=== PATIENT | female | born 1960 | race Caucasian/White ===

== ENCOUNTER 2020-10-14 15:15 | Emergency (ER) | payer BC ==
[2020-10-14 15:40] VITALS: TEMP 97.5; BMI 36.6
[2020-10-14 17:57] LABS: BASO % 0.1 % (0-2.0); EOS % 0.4 % (0-4.5); HEMATOCRIT 40.8 % (32.4-45.2); HEMOGLOBIN 14.2 GM/dL (10.7-15.3); LYMPH % 24.8 % (8-40); MCH 31.7 pg (25.7-33.7); MCHC 34.9 g/dl (32.0-36.0); MEAN CELL VOLUME 90.7 fl (80-96); MEAN PLT VOLUME 7.9 fl (7.5-11.1); MONO % 4.5 % (3.8-10.2); NEUT % 70.2 % (42.8-82.8); PLATELET COUNT 155 10^3/uL (134-434); RDW 12.6 % (11.6-15.6); WHITE BLOOD COUNT 8.2 K/mm3 (4.0-10.0)
[2020-10-14 18:12] LABS: CHLORIDE 108 mmol/L (98-107); SODIUM 142 mmol/L (136-145)
[2020-10-14 18:15] LABS: ALBUMIN 4.1 g/dl (3.4-5.0); ANION GAP 6 MMOL/L (8-16); BLOOD UREA NITROGEN 23.3 mg/dL (7-18); CO2 27 mmol/L (21-32); GLUCOSE,RANDOM 113 mg/dL (74-106)
[2020-10-14 18:18] LABS: CREATININE 0.6 mg/dL (0.55-1.3); SGOT/AST 17 U/L (15-37); SGPT/ALT 36 U/L (13-61)
[2020-10-14 18:20] LABS: BILIRUBIN,TOTAL 0.8 mg/dL (0.2-1); TOT PROT 6.9 g/dl (6.4-8.2)
[2020-10-14 18:21] LABS: ALK PHOS 91 U/L (45-117)
[2020-10-14 18:26] VITALS: BP 120/63; PULSE 69
== END 2020-10-14 19:33 | disposition home or self-care (01) ==
LOC: JER 15:15
DX: R55 Syncope and collapse (principal)
CPT/HCPCS: 36415; 71045-TC-FY; 80053; 82550; 84484; 85025; 93005; 93010; 99285-25

== ENCOUNTER 2023-10-12 12:42 | Emergency (ER) | payer BC ==
[2023-10-12 12:48] VITALS: BP 131/72; PULSE 98; RESP 18; TEMP 99.5; BMI 38.7
[2023-10-12 13:50] LABS: BASO % 0.4 % (0-2.0); HEMATOCRIT 38.5 % (32.4-45.2); HEMOGLOBIN 13.3 GM/dL (10.7-15.3); LYMPH % 13.4 % (8-40); MCH 31.8 pg (25.7-33.7); MCHC 34.6 g/dl (32.0-36.0); MEAN CELL VOLUME 91.8 fl (80-96); MEAN PLT VOLUME 8.3 fl (7.5-11.1); MONO % 7.8 % (3.8-10.2); NEUT % 78.4 % (42.8-82.8); PLATELET COUNT 167 10^3/uL (134-434); RBC 4.19 M/mm3 (3.60-5.2); RDW 13.1 % (11.6-15.6); WHITE BLOOD COUNT 11.2 K/mm3 (4.0-10.0)
[2023-10-12] MEDS ORDERED: KETOROLAC TROMETHAMINE 30 MG/1 ML VIAL ONE (13:55)
[2023-10-12] MEDS: SODIUM CHLORIDE 0.9% 500 ML INFUS.BAG IV ONE (14:01)
[2023-10-12] MEDS: KETOROLAC TROMETHAMINE 30 MG/1 ML VIAL IM ONE (14:02)
[2023-10-12 14:10] LABS: SODIUM 135 mmol/L (136-145)
[2023-10-12 14:11] LABS: ALBUMIN 3.7 g/dl (3.4-5.0); BLOOD UREA NITROGEN 16.5 mg/dL (7-18); CO2 27 mmol/L (21-32); GLUCOSE,RANDOM 133 mg/dL (74-106)
[2023-10-12 14:15] LABS: SGOT/AST 72 U/L (15-37); SGPT/ALT 34 U/L (13-61)
[2023-10-12 14:17] LABS: TOT PROT 6.8 g/dl (6.4-8.2)
[2023-10-12 14:18] LABS: ALK PHOS 95 U/L (45-117); BILIRUBIN,TOTAL 2.1 mg/dL (0.2-1)
[2023-10-12 14:27] LABS: ANION GAP 5 mmol/L (4-13); CHLORIDE 104 mmol/L (98-107); POTASSIUM 7.8 mmol/L (3.5-5.1)
[2023-10-12 15:39] LABS: POTASSIUM 4.1 mmol/L (3.5-5.1)
[2023-10-12 15:42] LABS: CALCIUM 8.7 mg/dL (8.5-10.1)
[2023-10-12 15:43] LABS: ALBUMIN 3.6 g/dl (3.4-5.0); BLOOD UREA NITROGEN 18.5 mg/dL (7-18)
[2023-10-12 15:46] LABS: CREATININE 0.9 mg/dL (0.55-1.3)
[2023-10-12 15:47] LABS: BILIRUBIN,TOTAL 1.6 mg/dL (0.2-1)
[2023-10-12 16:33] LABS: EPI CELLS 5 /uL (0-25.1); HYALINE CASTS 0 /uL (0-3.1); URINE APPEARANCE CLEAR; URINE BACTERIA 17 /uL (0-1359); URINE BILIRUBIN NEGATIVE (NEGATIVE); URINE COLOR YELLOW; URINE GLUCOSE (UA) NEGATIVE (NEGATIVE); URINE KETONE NEGATIVE (NEGATIVE); URINE LEUK ESTERASE TRACE (NEGATIVE); URINE NITRITE NEGATIVE (NEGATIVE); URINE PROTEIN NEGATIVE (NEGATIVE); URINE RBC 84 /uL (0-23.9); URINE WBC 34 /uL (0-25.8)
== END 2023-10-12 17:48 | disposition home or self-care (01) ==
LOC: JER 12:42
PROC: 3E0333Z Introduction of Anti-inflammatory into Peripheral Vein, Percutaneous Approach (ICD-10-PCS; principal; 2023-10-12)
DX: M54.50 Low back pain, unspecified (principal); R10.9 Unspecified abdominal pain; R11.2 Nausea with vomiting, unspecified; N23 Unspecified renal colic
CPT/HCPCS: 36415; 74176-TC; 80053; 81003; 85025; 87086; 99284-25